=== PATIENT | male | born 1985 | race Two or more races ===

== ENCOUNTER 2023-08-18 09:52 | Outpatient (CLI) | payer OTHER | END 2023-08-18 10:18 | disposition home or self-care (01) | LOC: EDBD 09:52 → SONOGRAMA 09:52 | DX: M75.42 Impingement syndrome of left shoulder (principal); M25.512 Pain in left shoulder; M54.50 Low back pain, unspecified ==

== ENCOUNTER 2024-12-09 13:41 | Outpatient (CLI) | payer OTHER ==
[~2024-12-09 13:41] MED LIST: ALBUTEROL2.5 MG/3 M IH; DOLOGEN CAPLET1 EACH PO; DOLOGESIC-DF 51 EACH PO; IPRAT-ALBUT 0.5-3 ML IH; TUSNEL LIQUID178 ML PO; ZITHROMAX500 MG PO; ZYNCOF 20-400120 ML PO
== END 2024-12-09 13:56 | disposition home or self-care (01) ==
LOC: RAD 13:41
PROVIDERS: ATTEND Family Medicine
DX: M54.2 Cervicalgia (principal); M75.32 Calcific tendinitis of left shoulder; R31.9 Hematuria, unspecified; M25.511 Pain in right shoulder
CPT/HCPCS: 72040; 73030; 73220; 76770; 76881; Q9965; 73221

== ENCOUNTER 2025-01-30 07:33 | Outpatient (CLI) | payer OTHER | END 2025-01-30 07:39 | disposition home or self-care (01) | LOC: TOM 07:33 | PROVIDERS: ATTEND Family Medicine | DX: N28.9 Disorder of kidney and ureter, unspecified (principal) ==